=== PATIENT | female | born 1990 | race Caucasian/White ===

== ENCOUNTER 2021-08-10 11:17 | Emergency (ER) | payer MEDICAID ==
[~2021-08-10] VITALS: Ht 177.8 cm; Wt 84.0 kg
[2021-08-10] MEDS ORDERED: LIDOCAINE HCL 1% 10 MG/ML 10ML VIAL IJ SCH (16:08)
[2021-08-10] MEDS ORDERED: BACITRACIN ZINC OINT UDPKT TOP ONE (16:15)
[2021-08-10] MEDS ORDERED: IBUPROFEN 600MG TABLET PO ONE (16:15)
[2021-08-10] MEDS ORDERED: LIDOCAINE HCL/PF 1% 10 MG/ML 5ML VIAL INFIL ONE (16:15)
[2021-08-10 18:20] VITALS: BP 137/75
== END 2021-08-10 18:20 | disposition home or self-care (01) ==
LOC: ER 13:09
DX: S61.218A Laceration without foreign body of other finger without damage to nail, initial encounter (principal); W25.XXXA Contact with sharp glass, initial encounter; Y93.89 Activity, other specified; Y92.9 Unspecified place or not applicable; Z87.442 Personal history of urinary calculi; Z98.890 Other specified postprocedural states
CPT/HCPCS: 12002; 73120; 99283; J3490; Z7610